=== PATIENT | female | born 1950 | race Caucasian/White ===

== ENCOUNTER → 2017-02-07 | Outpatient (CLI) | payer OTHER, MEDICARE ==
[2017-02-07 14:15] LABS: RATIO 46.3 mcg/mg (0-30.0)
[2017-02-07 14:41] LABS: ESTIMATED AVERAGE GLUCOSE 163 mg/dl; HA1C FLAG Normal (Normal)
== END | disposition home or self-care (01) ==
LOC: C.LABPBG 09:43
PROVIDERS: ATTEND Nurse Practitioner Family
DX: E11.65 Type 2 diabetes mellitus with hyperglycemia (principal)

== ENCOUNTER → 2017-08-08 | Outpatient (CLI) | payer OTHER, MEDICARE ==
[2017-08-08 13:04] LABS: ESTIMATED AVERAGE GLUCOSE 137 mg/dl; HA1C FLAG Normal (Normal)
[2017-08-08 13:15] LABS: RATIO 61.2 mcg/mg (0-30.0)
[2017-08-08 13:22] LABS: BLOOD UREA NITROGEN 15 mg/dl (7-18); BUN/CREATININE RATIO 15.1 (10-20); CALCIUM 9.5 mg/dl (8.5-10.1); CARBON DIOXIDE 31 mmol/L (21-32); CHLORIDE 104 mmol/L (98-107); CHOLESTEROL 175 mg/dl (0-200); CREATININE 0.98 mg/dl (0.60-1.20); GLUCOSE 111 mg/dl (70-99); POTASSIUM 4.2 mmol/L (3.5-5.1); SODIUM 138 mmol/L (136-145)
[2017-08-08 13:43] LABS: CHOLESTEROL/HDL RATIO 4.9; HDL CHOLESTEROL 36 mg/dl; LDL CHOLESTEROL CALCULATED 115 mg/dl; TRIGLYCERIDES 122 mg/dl (0-150); VERY LOW DENSITY LIPOPROT CALC 24 mg/dl
== END | disposition home or self-care (01) ==
LOC: C.LABPBG 10:40
PROVIDERS: ATTEND Nurse Practitioner Family
DX: E11.65 Type 2 diabetes mellitus with hyperglycemia (principal)

== ENCOUNTER → 2018-01-24 | Outpatient (CLI) | payer OTHER, MEDICARE ==
[2018-01-24 17:18] LABS: ALBUMIN 3.5 gm/dl (3.4-5.0); ALKALINE PHOSPHATASE 81 U/L (45-117); ALT/SGPT 18 U/L (12-78); AST/SGOT 18 U/L (15-37); BLOOD UREA NITROGEN 14 mg/dl (7-18); CALCIUM 9.4 mg/dl (8.5-10.1); CARBON DIOXIDE 32 mmol/L (21-32); CREATININE 1.01 mg/dl (0.60-1.20); GLUCOSE 150 mg/dl (70-99); POTASSIUM 4.2 mmol/L (3.5-5.1); SODIUM 139 mmol/L (136-145); TOTAL PROTEIN 8.2 gm/dl (6.4-8.2)
== END | disposition home or self-care (01) ==
LOC: C.LABPBG 15:53
PROVIDERS: ATTEND Physician Assistant
DX: Z01.812 Encounter for preprocedural laboratory examination (principal); H26.9 Unspecified cataract